=== PATIENT | male | born 1955 | race Caucasian/White ===

== ENCOUNTER 2017-05-10 23:20 | Emergency (ER) | payer BC, OTHER ==
--- NOTE | 2017-05-10 23:48 | C.PDOC ---
History Of Present Illness Pt presents with severe abdominal pain., Had not urinated in over 5-6 hours after drinking beer. Suprapubic cramping., pain. Bladder scan performed at bedside with over 1000 cc present in the bladder Time Seen by Provider: 05/10/17 23:47 Chief Complaint (Nursing): Abdominal Pain History Per: Patient History/Exam Limitations: no limitations Onset/Duration Of Symptoms: Hrs Current Symptoms Are (Timing): Worse Context: Other Severity: Severe Pain Scale Rating Of: 8 Location Of Pain/Discomfort: Suprapubic Radiation Of Pain To:: None Quality Of Discomfort: Sharp, Cramping, Pressure Associated Symptoms: Urinary Symptoms. denies: Fever, Chills, Nausea, Vomiting Exacerbating Factors: None Alleviating Factors: None Last Bowel Movement: Today Recent travel outside of the [place]: No Additional History Per: Patient Past Medical History Reviewed: Historical Data, Nursing Documentation, Vital Signs Vital Signs: Last Vital Signs Temp 97.4 F L 05/10/17 23:40 Pulse 72 05/10/17 23:40 Resp 20 05/10/17 23:40 BP 127/75 05/10/17 23:40 Pulse Ox 96 05/11/17 00:02 - Medical History PMH: Benign Prostatic Hyperplasia, Gastritis Surgical History: Appendectomy Family History: States: No Known Family Hx - Social History Hx Alcohol Use: Yes Hx Substance Use: No - Immunization History Hx Tetanus Toxoid Vaccination: No Hx Influenza Vaccination: No Hx Pneumococcal Vaccination: No Review Of Systems Constitutional: Negative for: Fever, Chills Cardiovascular: Negative for: Chest Pain Respiratory: Negative for: Shortness of Breath Gastrointestinal: Positive for: Abdominal Pain. Negative for: Nausea, Vomiting Genitourinary: Positive for: Other (urinary retention) Musculoskeletal: Negative for: Back Pain Skin: Negative for: Rash, Lesions, Jaundice Neurological: Negative for: Weakness Psych: Negative for: Anxiety Physical Exam - Physical Exam Appears: In Acute Distress Skin: Warm, Dry Chest: Symmetrical Cardiovascular: Rhythm Regular Respiratory: No Rales, No Rhonchi, No Wheezing Gastrointestinal/Abdominal: Tenderness, Distention (suprapubic) Back: No CVA Tenderness Male Genital: No Testicular Tenderness, No Inguinal Tenderness, No Scrotal Swelling Extremity: Normal ROM Extremity: Bilateral: Atraumatic Neurological/Psych: Oriented x3, Normal Speech, Normal Cognition Gait: Steady ED Course And Treatment O2 Sat by Pulse Oximetry: 96 Pulse Ox Interpretation: Normal Progress Note: I've placed an 18 czech boyer without any difficulty. Aprox 1200cc of clear urine drained. Pt with instant relief. Pt tolerated the procedure well Reevaluation Time: 00:02 Reassessment Condition: Improved Disposition Counseled Patient/Family Regarding: Studies Performed, Diagnosis, Need For Followup - Disposition Referrals: Alexis Mcallister MD [Staff Provider] - Disposition: HOME/ ROUTINE Disposition Time: 23:48 Condition: FAIR Instructions: Urinary Retention in Men (ED), Urinary Leg Bag (GEN) Forms: [employer] (Guatemalan) Print Language: WALLISIAN - Clinical Impression Clinical Impression: Acute urinary retention
[2017-05-11 00:42] VITALS: BP 137/65; PULSE 84; RESP 18; TEMP 97.6; O2SAT 95
== END 2017-05-11 00:40 | disposition home or self-care (01) ==
LOC: C.ER 23:20
DX: R33.8 Other retention of urine (principal)

== ENCOUNTER 2018-11-01 23:24 | Emergency (ER) | payer BC, OTHER ==
--- NOTE | 2018-11-01 23:44 | C.PDOC ---
History Of Present Illness 63 y/o male brought in to the ED for urinary retention. Patient reports having a distended bladder. States he has been unable to urinate for the last 4 hours. Patient notes this happens when he drinks alcohol. However, patient is not intoxicated on arrival. He denies any other complaints. Time Seen by Provider: 11/01/18 23:35 Chief Complaint (Nursing): Male Genitourinary History Per: Patient History/Exam Limitations: no limitations Onset/Duration Of Symptoms: Hrs (x4) Current Symptoms Are (Timing): Still Present Associated Symptoms: Urinary Symptoms Past Medical History Reviewed: Historical Data, Nursing Documentation, Vital Signs Vital Signs: Last Vital Signs Temp 97.7 F 11/01/18 23:29 Pulse 95 H 11/01/18 23:29 Resp 20 11/01/18 23:29 BP 194/100 H 11/01/18 23:29 Pulse Ox 98 11/01/18 23:29 - Medical History PMH: Benign Prostatic Hyperplasia, Gastritis Surgical History: Appendectomy Family History: States: Unknown Family Hx - Social History Hx Alcohol Use: Yes Hx Substance Use: No - Immunization History Hx Tetanus Toxoid Vaccination: No Hx Influenza Vaccination: Yes Hx Pneumococcal Vaccination: No Review Of Systems Constitutional: Negative for: Fever, Chills Respiratory: Negative for: Shortness of Breath Gastrointestinal: Positive for: Abdominal Pain (bladder distended). Negative for: Nausea, Vomiting Genitourinary: Positive for: Other (Urinary retention). Negative for: Dysuria, Hematuria Skin: Negative for: Rash Neurological: Negative for: Weakness Physical Exam - Physical Exam Appears: Non-toxic, No Acute Distress Skin: Warm, Dry, No Rash Head: Atraumatic, Normacephalic Eye(s): bilateral: Normal Inspection Oral Mucosa: Moist Chest: Symmetrical Cardiovascular: Rhythm Regular, No Murmur Respiratory: Normal Breath Sounds, No Accessory Muscle Use Gastrointestinal/Abdominal: Soft, No Tenderness, Distention (+ fullness over bladder) Back: Normal Inspection Extremity: Bilateral: Atraumatic, Normal Color And Temperature Neurological/Psych: Oriented x3, Normal Speech ED Course And Treatment O2 Sat by Pulse Oximetry: 98 (RA) Pulse Ox Interpretation: Normal Progress Note: Gutierrez catheter inserted, with >1000cc of clear urine drained. Patient is refusing to keep catheter in or go home with leg bag. States the same thing happened 1 year ago, and he was discharged home without a catheter in. Educated patient regarding the need for catheter, discussed risks, patient is choosing to leave AMA. Patient remains AAOx3, comfortable, in no acute distress. Provided with Rx for Flomax. Advised patient to return at any time to the ED if worse. Reevaluation Time: 23:45 Reassessment Condition: Improved Disposition Counseled Patient/Family Regarding: Diagnosis, Need For Followup - Disposition Referrals: Aileen Mcallister MD [Staff Provider] - Disposition: AGAINST MEDICAL ADVICE Disposition Time: 23:42 Condition: IMPROVED Prescriptions: Tamsulosin [Flomax] 0.4 mg PO DAILY #30 cap Instructions: Urinary Retention (DC) Forms: [employer] (Frisian) Print Language: ISRAELI - POA Present On Arrival: None - Clinical Impression Clinical Impression: Acute urinary retention - Scribe Statement The provider has reviewed the documentation as recorded by the Scribmary jo Salcido Provider Attestation: All medical record entries made by the Scribe were at my direction and personally dictated by me. I have reviewed the chart and agree that the record accurately reflects my personal performance of the history, physical exam, medical decision making, and the department course for this patient. I have also personally directed, reviewed, and agree with the discharge instructions and disposition.
[2018-11-01 23:47] VITALS: TEMP 97.7
[2018-11-02 00:01] VITALS: BP 160/90; PULSE 80; RESP 14; O2SAT 99
== END 2018-11-02 00:01 | disposition left against medical advice (07) ==
LOC: C.ER 23:24
DX: N40.1 Benign prostatic hyperplasia with lower urinary tract symptoms (principal); R33.8 Other retention of urine

== ENCOUNTER 2019-01-18 04:20 | Emergency (ER) | payer OTHER ==
[2019-01-18 04:40] VITALS: TEMP 97.8
--- NOTE | 2019-01-18 05:16 | C.PDOC ---
History Of Present Illness 63-year-old male presents to the ED for evaluation of pain and swelling to right lower eyelid which began around two days ago. Patient states that three days ago, he walked by some construction and thinks that something may have gotten into his eye. Patient was initially asymptomatic and did not feel discomfort until the following day. Patient denies change in vision, eye discharge, or direct trauma to the area. Time Seen by Provider: 01/18/19 04:46 Chief Complaint (Nursing): Eye Problem History Per: Patient History/Exam Limitations: no limitations Onset/Duration Of Symptoms: Days (2) Current Symptoms Are (Timing): Still Present Injury To Eye?: No Quality: "Pain" Wears Contact Lens?: No Associated Symptoms: Pain, Swelling, FB Sensation. denies: Decreased Vision, Discharge From Eye Additional History Per: Patient Past Medical History Reviewed: Historical Data, Nursing Documentation, Vital Signs Vital Signs: Last Vital Signs Temp 97.8 F 01/18/19 04:27 Pulse 83 01/18/19 04:27 Resp 20 01/18/19 04:27 BP 177/97 H 01/18/19 04:27 Pulse Ox 100 01/18/19 04:27 - Medical History PMH: Benign Prostatic Hyperplasia, Gastritis Denies: Chronic Kidney Disease Surgical History: Appendectomy Family History: States: Unknown Family Hx - Social History Hx Alcohol Use: Yes Hx Substance Use: No - Immunization History Hx Tetanus Toxoid Vaccination: No Hx Influenza Vaccination: No Hx Pneumococcal Vaccination: No Review Of Systems Constitutional: Negative for: Fever, Chills, Weakness Eyes: Positive for: Other (right lower eyelid pain and swelling ). Negative for: Vision Change, Redness Neurological: Negative for: Weakness, Numbness, Dizziness Physical Exam - Physical Exam Appears: Well, Non-toxic, No Acute Distress Skin: Normal Color, Warm, No Rash Head: Atraumatic, Normacephalic Eye(s): bilateral: PERRL, EOMI, right: Other (swelling and tenderness to lower eyelid. stye noted on inner eyelid. no drainage. conjunctiva unremarkable ), left: Normal Inspection Neurological/Psych: Oriented x3, Normal Cranial Nerves (grossly intact ) ED Course And Treatment O2 Sat by Pulse Oximetry: 100 (on RA) Pulse Ox Interpretation: Normal Medical Decision Making Medical Decision Making: Patient diagnosed with internal stye. I educated the patient on applying warm compresses to the area and advised supervisor grove follow up. Disposition Counseled Patient/Family Regarding: Diagnosis, Need For Followup - Disposition Referrals: Vinicius Almazan [Staff Provider] - Disposition: HOME/ ROUTINE Disposition Time: 05:15 Condition: STABLE Instructions: [employer]e (Hordeolum) Forms: Gen Discharge Inst Hungarian, [employer] (Hungarian) Print Language: FRISIAN - Clinical Impression Clinical Impression: Sty, internal - PA / RN HOSPICE / Resident Statement MD/DO has reviewed & agrees with the documentation as recorded. - Scribe Statement The provider has reviewed the documentation as recorded by the Scribe (Melinda Wakefield) All medical record entries made by the Scribe were at my direction and personally dictated by me. I have reviewed the chart and agree that the record accurately reflects my personal performance of the history, physical exam, medical decision making, and the department course for this patient. I have also personally directed, reviewed, and agree with the discharge instructions and disposition.
[2019-01-18 06:53] VITALS: BP 154/74; PULSE 68; RESP 16; O2SAT 98
== END 2019-01-18 06:35 | disposition home or self-care (01) ==
LOC: C.ER 04:20
DX: H00.012 Hordeolum externum right lower eyelid (principal)